=== PATIENT | female | born 1935 | race Asian ===

== ENCOUNTER 2018-12-26 21:34 | Emergency (ER) | payer MEDICARE, OTHER ==
[~2018-12-26] VITALS: Ht 144.8 cm; Wt 48.6 kg
[2018-12-26 21:36] VITALS: BP 163/98
[2018-12-26] MEDS ORDERED: AMLO-511 PO (22:04)
[2018-12-26] MEDS ORDERED: SIMV-259 PO (22:04)
[2018-12-26 22:12] LABS: APPEARANCE,URINE CLOUDY (CLEAR); BILIRUBIN,URINE NEGATIVE (NEGATIVE); GLUCOSE, URINE (UA) NEGATIVE (NEGATIVE); KETONES,URINE NEGATIVE (NEGATIVE); LEUKOCYTE ESTERASE ,URINE LARGE (NEGATIVE); NITRATE,URINE POSITIVE (NEGATIVE); OCCULT BLOOD,URINE LARGE (NEGATIVE); PROTEIN,URINE TRACE (NEGATIVE)
[2018-12-26 22:21] LABS: WBC,URINE 26-50 /HPF (0-5)
[2018-12-26 22:22] LABS: BACTERIA,URINE Moderate /HPF (None Seen); SQUAMOUS EPITHELIAL CELL,UR Few /LPF (None Seen)
[2018-12-26] MEDS ORDERED: ACETAMINOPHEN 500 MG TABLET PO ONE (23:45)
[2018-12-27] MEDS ORDERED: NITROFURANTOIN/NITROFURAN MAC 100 MG CAPSULE [MACROBID] PO ONE
== END 2018-12-26 23:42 | disposition home or self-care (01) ==
LOC: EMS 21:35
DX: N39.0 Urinary tract infection, site not specified (principal); I10 Essential (primary) hypertension; E78.00 Pure hypercholesterolemia, unspecified
CPT/HCPCS: 87086

== ENCOUNTER 2022-07-16 20:33 | Emergency (ER) | payer MEDICARE, OTHER ==
[~2022-07-16] VITALS: Ht 144.8 cm; Wt 47.7 kg
[~2022-07-16 20:33] MED LIST: AMLO-257 PO; SIMV-259 PO
[2022-07-16] MEDS ORDERED: PHEN95TA23 PO (21:27)
[2022-07-16 21:32] LABS: APPEARANCE,URINE CLEAR (CLEAR); BILIRUBIN,URINE NEGATIVE (NEGATIVE); GLUCOSE, URINE (UA) NEGATIVE (NEGATIVE); KETONES,URINE NEGATIVE (NEGATIVE); LEUKOCYTE ESTERASE ,URINE NEGATIVE (NEGATIVE); OCCULT BLOOD,URINE NEGATIVE (NEGATIVE); PROTEIN,URINE NEGATIVE (NEGATIVE); SPECIFIC GRAVITIY, URINE 1.004 (1.003-1.030); UROBILINOGEN,URINE <=1.0 mg/dL (<=1.0)
[2022-07-16 21:59] LABS: RENAL EPITHELIAL CELLS,URINE Few /LPF (None Seen)
[2022-07-16 22:00] LABS: BACTERIA,URINE None Seen /HPF (None Seen); NITRATE,URINE NEGATIVE (NEGATIVE); RBC,URINE None Seen /HPF (0-2); WBC,URINE 0-2 /HPF (0-5)
[2022-07-16] MEDS ORDERED: NITR100C4 PO (22:23)
[2022-07-16 22:32] VITALS: BP 132/70
== END 2022-07-16 22:35 | disposition home or self-care (01) ==
LOC: EMS 20:47
DX: R30.0 Dysuria (principal); E78.5 Hyperlipidemia, unspecified; E78.00 Pure hypercholesterolemia, unspecified; I10 Essential (primary) hypertension; Z87.440 Personal history of urinary (tract) infections
CPT/HCPCS: 81001; 99283